=== PATIENT | female | born 1945 | race Caucasian/White ===

== ENCOUNTER 2019-01-10 07:38 | Day surgery (SDC) | payer OTHER ==
[~2019-01-10 07:38] MED LIST: ASA81 MG PO; LIPITOR40 MG PO; LOSARTAN-HCTZ1 EAC1 PO; MOBIC15 MG PO; NEURONTIN800 MG PO; OMEGA-31000 MG PO
== END 2019-01-10 15:25 | disposition home or self-care (01) ==
LOC: CIR.AMB 07:38 → EDBD 08:30 → CIR.AMB 08:30
DX: G56.21 Lesion of ulnar nerve, right upper limb (principal)